=== PATIENT | female | born 1995 | race Caucasian/White ===

== ENCOUNTER 2017-02-06 01:30 | Inpatient (IN) | payer MEDICAID ==
[~2017-02-06] VITALS: Ht 154.9 cm; Wt 96.2 kg
[~2017-02-06 01:30] MED LIST: ADULT LOW DOSE81 MG PO; NOMEDS XX
--- OUTSIDE RECORDS SUMMARY | 2017-02-06 01:34 | External Medical Summary Rpt ---
Author Author , Organization [employer] Address Unknown Phone Unavailable Care Team Providers Care Independent Producer Name Role Phone JHONATAN ISRAEL Unavailable Unavailable OSEI, OSEI Unavailable Unavailable [facility] Unavailable Unavailable HOSPITAL, [facility] Unavailable Unavailable HENRIQUEZ, HENRIQUEZ Unavailable Unavailable HARPEL, HARPEL Unavailable Unavailable [facility] Unavailable Unavailable INC, [facility], Unavailable Unavailable [facility] Un[facility] Unavailable [facility] Unavailable Unavailable [facility] [place] [place] [facility] O'VIANE[facility], O'VIANEY Unavailable Unavailable [facility] Unavailable Unavailable [facility]PITALS, [facility] Purpose Continuity of Care Document - 09-01-2016 through 2016 Problems Code Diagnosis DOS Provider Status [id number] 01-02-2017 [facility] CONDITIONS [facility] UNS 3RD TRIMESTER O4703 FALSE LABOR 01-02-2017 [facility] BEFORE 37 PHYSICIANS CMPLETE GROUP WEEKS GEST 3RD TRI R252 CRAMP AND 01-02-2017 [facility] Z3A34 34 WEEKS 01-02-2017 [facility] INC Z3480 ENC 12-22-2016 [facility] SUPERVISION PHYSICIANS OT NORMAL GROUP PREG UNS TRIMESTER Z36 ENCOUNTER 12-22-2016 [facility] FOR PHYSICIANS GROUP SCREENING OF MOTHER O6003 12-18-2016 [facility] DELIVERY THIRD TRIMESTER Z3A32 32 WEEKS 12-18-2016 [facility] D6851 ACTIVATED 12-17-2016 [facility] PROTEIN C PHYSICIANS RESISTANCE GROUP [id number] OTH DZ 12-17-2016 [facility] BLOOD & BFO PHYSICIANS IMMUN MECH GROUP COMP PREG 3RD TRI Z3A28 28 WEEKS 11-24-2016 [facility] Z3A29 29 WEEKS 11-24-2016 [facility] Z8249 FAMILY HX 11-24-2016 [facility] SERV HRT DZ [facility] CIRC SYSTEM N760 ACUTE 10-31-2016 [facility] VAGINITIS PHYSICIANS GROUP Z131 ENCOUNTER 10-31-2016 [facility] FOR PHYSICIANS SCREENING GROUP FOR DIABETES MELLITUS E860 DEHYDRATION 10-11-2016 [facility] N EMERGENCY PHYS E876 HYPOKALEMIA 10-11-2016 [facility] K529 NONINFECTIV 10-11-2016 [facility] E N EMERGENCY GASTROENTER PHYS ITIS & COLITIS UNS O2690 10-11-2016 [facility] UNS UNS TRIMESTER X31227 DISEASES 10-11-2016 [facility] DIGESTIVE N EMERGENCY SYSTEM COMP PHYS UNS TRI Z3A00 WEEKS OF 10-11-2016 [facility] GESTATION N EMERGENCY OF PHYS NOT SPECIFIED O0972 SUP HIGH 09-18-2016 [facility] RISK PREG PHYSICIANS D/T SOCIAL GROUP PROBLEMS 2ND TRI M34895 ENCOUNTER 09-18-2016 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 PHYSICIANS GENERAL RTN GROUP W/O ABNORMAL FIND Z048 ENCOUNTER 09-18-2016 [facility]BS[facility] OTHER SPEC REASONS [id number] LACERATION 09-01-2016 [facility] W/O FOREIGN N EMERGENCY BODY RT PHYS FOREARM INITIAL [id number] LACERATION 09-01-2016 [facility] W/O FOREIGN N EMERGENCY BODY LT PHYS FOREARM INITIAL [id number] OPEN BITE 09-01-2016 [facility] INITIAL ENCOUNTER [id number] OPEN BITE 09-01-2016 [facility] INITIAL ENCOUNTER [id number] BITTEN BY 09-01-2016 [facility] DOG INITIAL N EMERGENCY ENCOUNTER PHYS Z23 ENCOUNTER 09-01-2016 [facility] Allergies, Adverse Reactions, Alerts Clinical Alert Notifications Alert Member has >/= 3 hosp admit & >/= 1 ED visit in 365 days Medications Na ND Rx Da Fi Fi Am Da Di Ph RX Ph St me C No te ll ll ou ys ag ar # ys at rm s nt no ma ic us Or Da si cy ia de te s n re d PO 00 01 02 10 5 00 SO Ac TA 78 -1 -1 .0 00 PE ti SS 11 6- 0- 00 00 RS ve IU 52 20 20 55 M 61 17 17 36 FA CL 0 [address] 10 UG ME Q TA BL ET WY 68 01 02 12 3 00 WA Ac OM 38 -1 -1 .0 00 L- ti ET 20 4- 0- 00 07 MA ve SOUZA 04 20 20 38 RT ZI 10 17 17 69 NE 1 83 PH AR 25 MA CY MG #4 TA 93 BL ET CL 00 12 01 30 10 00 SO Ac IN 71 -2 -2 .0 00 PE ti DA 35 9- 7- 00 00 RS ve MY 25 20 20 55 CI 60 16 17 23 FA N 1 02 VT HC LY L 30 DR 0 UG MG CA PS UL E Immunization Name Date Route CVX Reacti Commen Provid Is Given on t er Refuse d TD [place] No VACCIN 2015 N E COMMUN PRSRV ITY FREE 7 HOSPIT YRS AL OR OLDER FOR IM USE TD [place] No VACCIN 2016 N E COMMUN PRSRV ITY FREE 7 HOSPIT YRS AL OR OLDER FOR IM USE Procedures Procedure DOS Code Location Performer Comment CULTURE 23708 [facility] BACTERIAL 7 [facility] INC QUANTTATI VE COLONY COUNT URINE EVAL C/V 49198 [facility] AMNIOTIC 7 [facility]OS[facility] FLUID INC INC PROTEIN QUAL EA SPECIMEN DRUG TEST 73027 [facility] PRSMV 7 [facility]OSP QUAL DIR INC INC OPTICAL OBS PER DAY FTL 42372 [facility] FIBRONECT 7 [facility] IN INC INC CERVICOVA G SECRETION S SEMI-ARNALDO 39510 [facility] NONSTRESS 7 PHYSICIAN TEST S GROUP PARTICLE 01266 [facility] AGGLUTINA 7 [facility] TION INC INC SCREEN EACH ANTIBODY CUL 39029 [facility] PRSMPTV 7 PHYSICIAN PTHGNC S GROUP ORGANISM SCRN W[facility] 55093 [facility] DISCHARGE 7 PHYSICIAN DAY S GROUP MANAGEMEN T 30 MIN/< DOPPLER 96638 [facility] VELOCIMET 7 MEDICAL RY IMAGING UMBILICAL ASS ARTERY SBSQ 87607 [facility] 7 PHYSICIAN CARE/DAY S GROUP 15 MINUTES US PREG 87777 [facility] UTERUS 7 MEDICAL REAL TIME IMAGING F/U ASS TRNSABDL PER FETUS 40763 [facility] BIOPHYSIC 7 MEDICAL AL IMAGING PROFILE ASS W/O NON-STRES S TESTING INITIAL 97911 [facility] 7 PHYSICIAN CARE/DAY S GROUP 50 [place] [address] [facility] HOMOCYSTE 7 [facility]ALS [facility]OSPITALS COLLECTIO 64069 [facility] N VENOUS 7 HEALTHCAR HEALTHCAR BLOOD E E VENIPUNCT HOSPITALS HOSPITALS URE COLLECTIO 32793 [facility] N VENOUS 7 MEM H[facility] BLOOD INC INC VENIPUNCT URE GLUCOSE 24326 [facility] POST 7 MEM [facility] GLUCOSE INC INC DOSE SMR PRIM 18871 [facility] SRC WET 7 PHYSICIAN MOUNT S GROUP NFCT AGT BLOOD 83391 [facility] COUNT 7 MEM [facility] COMPLETE INC INC AUTO&AUTO DIFRNTL WBC THERAPEUT 13808 [facility] 7 [facility] TIC/DX INJECTION SUBQ/IM US PREG 38863 [facility] PHYSICIAN AFTER 1ST S GROUP TRIMEST GESTATION IAADIADOO 14807 [facility] 6 PHYSICIAN PHYSICIAN TRICHOMON S GROUP S GROUP VAGINALIS OBSTETRIC 80626 [facility] PANEL 6 [facility] INC INC CULTURE 24922 [facility] CHLAMYDIA 6 PHYSICIAN ANY S GROUP SOURCE DRUG TST G0477 [facility] PRESUMP;C 6 MEM HOS[facility] PBL BEING INC INC READ DC OPT OBV ONLY IADNA 81450 [facility] HERPES 6 PHYSICIAN PHYSICIAN SIMPLX S GROUP S GROUP VIRUS DIRECT PROBE TQ URINE 19408 [facility]ICIAN TEST S GROUP VISUAL COLOR CMPRSN METHS CLOTTING 79038 [facility] FACTOR V 6 MEM H[facility] ACG/PROAC INC INC CELERIN LABILE FACTOR COLLECTIO 42807 [facility] N VENOUS 6 MEM H[facility] MEM [facility]OS[facility] BLOOD INC INC VENIPUNCT URE IADNA 86932 [facility] NEISSERIA 6 PHYSICIAN S GROUP GONORRHOE AE DIRECT PROBE TQ INF AGT G0432 [facility] AB DETECT 6 MEM HOS[facility] MEM [facility] EIA TECH INC INC HIV-1&/HI V-2 [place] [address] [facility] THYROID 6 MEM [facility] MEM [facility] [place]ATI [place] [address] [facility] 6 [facility] FREE 7 YRS OR OLDER FOR IM USE Encounters Encounter Start End Date Code Location Performer Type Date OFFICE 85947 [facility] HENRIQUEZ OUTPATIEN 7 7 PHYSICIAN T VISIT S GROUP 15 MINUTES [facility]OSP[facility] - 7 7 [facility] OUTPATIEN INC T HOSPITAL [facility] - 7 7 [facility] OUTPATI[facility] T OFFICE 82552 [facility] HARPEL OUTPATIEN 7 7 PHYSICIAN T VISIT S GROUP [address] [facility] HARPEL OUTPATIEN 7 7 PHYSICIAN T VISIT S GROUP 15 MINUTES HOSPITAL [facility] HOSPITALS OFFICE 50753 [place] [facility] OUTPATIEN 7 7 MEDICAL T NEW 20 SERV MINUTES FOUNDATIO N OFFICE 63697 [facility] HARPEL OUTPATIEN 7 7 PHYSICIAN T VISIT S GROUP 15 MINUTES HOSPITAL [facility] - 7 7 [facility] OUTPATIEN INC T OFFICE 83340 [facility] HARPEL OUTPATIEN 7 7 PHYSICIAN T VISIT S GROUP 15 MINUTES [facility] 7 7 [facility] T EMERGENCY 82477 [facility] 7 7 JASPAL DEPARTMEN EMERGENCY T VISIT PHYS HIGH/URGE NT SEVERITY OFFICE 00470 [facility]PE[facility] OUTPATIEN 6 6 PHYSICIAN T VISIT S GROUP 15 MINUTES HOSPITAL [facility] - 6 6 [facility] OUTPATIEN INC T INITIAL 28593 [facility] HARPEL PREVENTIV 6 6 PHYSICIAN E S GROUP MEDICINE NEW PT AGE 18-39YRS EMERGENCY [address] T VISIT MODERATE SEVERITY EMERGENCY 50[address] [facility] 6 6 [facility] EMERGENCY T VISIT PHYS HIGH/URGE NT SEVERITY HOSPITAL [address] T
--- OUTSIDE RECORDS SUMMARY | 2017-02-06 01:34 | External Medical Summary Rpt ---
Author Author , Organization [employer] Address Unknown Phone Unavailable Care Team Providers Care Turn Machine Operator Name Role Phone JHONATAN ISRAEL Unavailable Unavailable OSEI, OSEI Unavailable Unavailable [facility] Unavailable Unavailable [facility], [facility] Unavailable Unavailable HENRIQUEZ, HENRIQUEZ Unavailable Unavailable HARPEL, HARPEL Unavailable Unavailable [facility] Unavailable Un[facility] INC, [facility], Unavailable Unavailable [facility] Unavailable [facility] Unavailable Unavailable [facility] O'VIANEY, O'VIANEY Unavailable Unavailable [facility] Unavailable Unavailable HOSPITALS, [facility] Purpose Continuity of Care Document - 09-01-2016 through 2016 Problems Code Diagnosis DOS Provider Status [id number] 01-02-2017 [facility] CONDITIONS [facility] UNS 3RD TRIMESTER O4703 FALSE LABOR 01-02-2017 [facility] BEFORE 37 PHYSICIANS CMPLETE GROUP WEEKS GEST 3RD TRI R252 CRAMP AND 01-02-2017 [facility] Z3A34 34 WEEKS 01-02-2017 [facility] OF INC Z3480 ENC 12-22-2016 [facility] SUPERVISION PHYSICIANS OT NORMAL GROUP PREG UNS TRIMESTER Z36 ENCOUNTER 12-22-2016 [facility] FOR PHYSICIANS GROUP SCREENING OF MOTHER O6003 12-18-2016 [facility] DELIVERY THIRD TRIMESTER Z3A32 32 WEEKS 12-18-2016 [facility] D6851 ACTIVATED 12-17-2016 [facility] PROTEIN C PHYSICIANS RESISTANCE GROUP [id number] OTH DZ 12-17-2016 [facility] BLOOD & BFO PHYSICIANS IMMUN MECH GROUP COMP PREG 3RD TRI Z3A28 28 WEEKS 11-24-2016 [facility] Z3A29 29 WEEKS 11-24-2016 [facility] Z8249 FAMILY HX 11-24-2016 [place] [facility] HRT DZ [facility] CIRC SYSTEM N760 ACUTE 10-31-2016 [facility] VAGINITIS PHYSICIANS GROUP Z131 ENCOUNTER 10-31-2016 [facility] FOR PHYSICIANS SCREENING GROUP FOR DIABETES MELLITUS E860 DEHYDRATION 10-11-2016 [facility] N EMERGENCY PHYS E876 HYPOKALEMIA 10-11-2016 [facility] K529 NONINFECTIV 10-11-2016 [facility] E N EMERGENCY GASTROENTER PHYS ITIS & COLITIS UNS O2690 10-11-2016 [facility] UNS UNS TRIMESTER W12778 DISEASES 10-11-2016 [facility] DIGESTIVE N EMERGENCY SYSTEM COMP PHYS UNS TRI Z3A00 WEEKS OF 10-11-2016 [facility] GESTATION N EMERGENCY OF PHYS NOT SPECIFIED O0972 SUP HIGH 09-18-2016 [facility] RISK PREG PHYSICIANS D/T SOCIAL GROUP PROBLEMS 2ND TRI Y48613 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 09-18-2016 [facility] 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 RTN GROUP W/O ABNORMAL FIND Z048 ENCOUNTER 09-18-2016 [facility] OBS[facility] OTHER SPEC REASONS [id number] LACERATION 09-01-2016 [facility] W/O FOREIGN N EMERGENCY BODY RT PHYS FOREARM INITIAL [id number] LACERATION 09-01-2016 [facility] W/O FOREIGN N EMERGENCY BODY LT PHYS FOREARM INITIAL [id number] OPEN BITE 09-01-2016 [facility] INITIAL ENCOUNTER [id number] OPEN BITE 09-01-2016 [facility] INITIAL ENCOUNTER [id number] BITTEN BY 09-01-2016 [facility] DOG INITIAL N EMERGENCY ENCOUNTER PHYS Z23 ENCOUNTER 09-01-2016 [facility] Allergies, Adverse Reactions, Alerts Clinical Alert [...] 17 17 36 FA CL 0 [address] 10 UG ME Q TA BL ET NM 68 01 02 12 3 00 WA [...] 16 17 23 FA N 1 02 WI HC LY L 30 DR 0 UG [...] Procedure DOS Code Location Performer Comment CULTURE 17803 [facility] BACTERIAL 7 [facility] INC INC QUANTTATI VE COLONY COUNT URINE EVAL C/V 19907 [facility] AMNIOTIC 7 MEM [facility] HOSP FLUID INC INC PROTEIN QUAL EA SPECIMEN DRUG TEST 28240 [facility] PRSMV 7 MEM [facility]OSP QUAL DIR INC INC OPTICAL OBS PER DAY FTL 39436 [facility] FIBRONECT 7 [facility] IN INC INC CERVICOVA G SECRETION S SEMI-ARNALDO 90094 [facility] 7 PHYSICIAN TEST S GROUP PARTICLE 36226 [facility] AGGLUTINA 7 [facility] TION INC INC SCREEN EACH ANTIBODY CUL 25491 [facility] PRSMPTV 7 PHYSICIAN PTHGNC S GROUP ORGANISM SCRN W/[facility] 49405 [facility] DISCHARGE 7 PHYSICIAN DAY S GROUP MANAGEMEN T 30 MIN/< DOPPLER 14122 [facility] VELOCIMET 7 MEDICAL RY IMAGING UMBILICAL ASS ARTERY SBSQ 04783 [facility] 7 PHYSICIAN CARE/DAY S GROUP 15 MINUTES US PREG 21584 [facility] UTERUS 7 MEDICAL REAL TIME IMAGING F/U ASS TRNSABDL PER FETUS 48171 [facility] BIOPHYSIC 7 MEDICAL AL IMAGING PROFILE ASS W/O NON-STRES S TESTING INITIAL 59709 [facility] 7 PHYSICIAN CARE/DAY S GROUP [address] [place] [address] [facility]OC[facility] 7 [facility]ALS [facility]OSPITALS COLLECTIO 39213 [facility] N VENOUS 7 [facility]ALTHCAR [facility]ALTHCAR BLOOD E E VENIPUNCT HOSPITALS HOSPITALS URE COLLECTIO 79687 [facility] N VENOUS 7 MEM H[facility] BLOOD INC INC VENIPUNCT URE GLUCOSE 58818 [facility] POST 7 [facility] GLUCOSE INC INC DOSE SMR PRIM 77891 [facility] SRC WET 7 PHYSICIAN MOUNT S GROUP NFCT AGT BLOOD 62128 [facility] COUNT 7 [facility] COMPLETE INC INC AUTO&AUTO DIFRNTL WBC THERAPEUT 97767 [facility] 7 [facility] TIC/DX INJECTION SUBQ/IM US PREG 11457 [facility] 6 PHYSICIAN AFTER 1ST S GROUP TRIMEST GESTATION IAADIADOO 05545 [facility] 6 PHYSICIAN PHYSICIAN TRICHOMON S GROUP S GROUP VAGINALIS OBSTETRIC 41216 [facility] G[facility] PANEL 6 [facility] INC INC CULTURE 29004 [facility] CHLAMYDIA 6 PHYSICIAN ANY S GROUP SOURCE DRUG TST G0477 [facility] PRESUMP;C 6 MEM H[facility] PBL BEING INC INC READ DC OPT OBV ONLY IADNA 87614 [facility] HERPES 6 PHYSICIAN PHYSICIAN SIMPLX S GROUP S GROUP VIRUS DIRECT PROBE TQ URINE 35736 [facility] 6 PHYSICIAN TEST S GROUP VISUAL COLOR CMPRSN METHS CLOTTING 30581 [facility] FACTOR V 6 MEM H[facility] ACG/PROAC INC INC CELERIN LABILE FACTOR COLLECTIO 29239 [facility] N VENOUS 6 MEM H[facility] BLOOD INC INC VENIPUNCT URE IADNA 45094 [facility] NEISSERIA 6 PHYSICIAN S GROUP GONORRHOE AE DIRECT PROBE TQ INF AGT G0432 [facility] AB DETECT 6 MEM H[facility] EIA TECH INC INC HIV-1&/HI V-2 [place] [address] [facility] THYROID 6 MEM [facility] MEM [facility] [place] [address] [facility] 6 [facility] FREE 7 YRS OR OLDER FOR IM USE Encounters Encounter Start End Date Code Location Performer Type Date OFFICE 47455 [facility] HENRIQUEZ OUTPATIEN 7 7 PHYSICIAN T VISIT S GROUP 15 MINUTES [facility] - 7 7 [facility] INC T [facility] - 7 7 [facility] OUTPATIEN INC T OFFICE 34232 [facility] HARPEL OUTPATIEN 7 7 PHYSICIAN T VISIT S GROUP 15 MINUTES OFFICE 54757 [facility] OUTPATIEN 7 7 PHYSICIAN T VISIT S GROUP 15 MINUTES [facility] OFF[facility] 44004 [facility] 7 7 MEDICAL T NEW 20 SERV MINUTES FOUNDATIO N OFFICE 20288 [facility] OUTPATIEN 7 7 PHYSICIAN T VISIT S GROUP 15 MINUTES HOSPITAL [facility] - 7 7 [facility] OUTPATIEN INC T OFFICE 51561 [facility] OUTPATIEN 7 7 PHYSICIAN T VISIT S GROUP 15 MINUTES [facility] 7 [facility] EMER[facility]ENC[facility] 35402 [facility] 7 7 [facility] DEPARTMEN EMERGENCY T VISIT PHYS HIGH/URGE NT SEVERITY OFFICE 19166 [facility] OUTPATIEN 6 6 PHYSICIAN T VISIT S GROUP 15 MINUTES HOSPITAL [facility] - 6 6 [facility] OUTPATIEN INC T INITIAL 84211 [facility] PREVENTIV 6 6 PHYSICIAN E S GROUP MEDICINE NEW PT AGE 18-39YRS EMERGENCY [address] T VISIT MODERATE SEVERITY EMERGENCY 18444 [facility] 6 6 [facility] EMERGENCY T VISIT PHYS HIGH/URGE NT SEVERITY HOSPITAL [address] T
--- OUTSIDE RECORDS SUMMARY | 2017-02-06 01:35 | External Medical Summary Rpt ---
Author Author , Organization [employer] Address Unknown Phone Unavailable Care Team Providers Care Fractionation Supervisor Name Role Phone JHONATAN ISRAEL Unavailable Unavailable OSEI, OSEI Unavailable Unavailable [facility] Unavailable Unavailable [facility]PITAL, [facility] CHESTNUT, CHESTNUT Unavailable Unavailable HENRIQUEZ, HENRIQUEZ Unavailable Unavailable HARPEL, HARPEL Unavailable Unavailable [facility] Un[facility] Un[facility], [facility], Unavailable Unavailable [facility] Unavailable [facility] Un[facility], [facility] O'VIAENY, O'VIANEY Unavailable Unavailable [facility] Unavailable Unavailable [facility]PIT[facility], [facility] Purpose Continuity of Care Document - 09-01-2016 through 2016 Problems Code Diagnosis DOS Provider Status [id number] 01-02-2017 [facility] CONDITIONS [facility] UNS 3RD TRIMESTER O4703 FALSE LABOR 01-02-2017 [facility] BEFORE 37 PHYSICIANS CMPLETE GROUP WEEKS GEST 3RD TRI R252 CRAMP AND 01-02-2017 [facility] Z3A34 34 WEEKS 01-02-2017 [facility] INC Z3480 ENC 12-22-2016 [facility] SUPERVISION PHYSICIANS OT NORMAL GROUP PREG UNS TRIMESTER Z36 ENCOUNTER 12-22-2016 [facility] GROUP SCREENING OF MOTHER O6003 12-18-2016 [facility] DELIVERY THIRD TRIMESTER Z3A32 32 WEEKS 12-18-2016 [facility] D6851 ACTIVATED 12-17-2016 [facility] PROTEIN C PHYSICIANS RESISTANCE GROUP H36019 OTH DZ 12-17-2016 [facility] BLOOD & BFO PHYSICIANS IMMUN MECH GROUP COMP PREG 3RD TRI Z3A28 28 WEEKS 11-24-2016 [facility] Z3A29 29 WEEKS 11-24-2016 [facility] Z8249 FAMILY HX 11-24-2016 [facility] HRT DZ [facility] CIRC SYSTEM N760 ACUTE 10-31-2016 [facility] VAGINITIS PHYSICIANS GROUP Z131 ENCOUNTER 10-31-2016 [facility] FOR PH[facility]IANS SCREENING GROUP FOR DIABETES MELLITUS E860 DEHYDRATION 10-11-2016 [facility] N EMERGENCY PHYS E876 HYPOKALEMIA 10-11-2016 [facility] K529 NONINFECTIV 10-11-2016 [facility] E N EMERGENCY GASTROENTER PHYS ITIS & COLITIS UNS O2690 10-11-2016 [facility] UNS UNS TRIMESTER I03031 DISEASES 10-11-2016 [facility] DIGESTIVE N EMERGENCY SYSTEM COMP PHYS UNS TRI Z3A00 WEEKS OF 10-11-2016 [facility] GESTATION N EMERGENCY OF PHYS NOT SPECIFIED O0972 SUP HIGH 09-18-2016 [facility] RISK PREG PHYSICIANS D/T SOCIAL GROUP PROBLEMS 2ND TRI T60635 ENCOUNTER 09-18-2016 [facility] 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 RTN GROUP W/O ABNORMAL FIND Z048 ENCOUNTER 09-18-2016 [facility] OBSERVATION INC OTHER SPEC REASONS [id number] LACERATION 09-01-2016 [facility] W/O FOREIGN N EMERGENCY BODY RT PHYS FOREARM INITIAL [id number] LACERATION 09-01-2016 [facility] W/O FOREIGN N EMERGENCY BODY LT PHYS FOREARM INITIAL [id number] OPEN BITE 09-01-2016 [facility] INITIAL ENCOUNTER [id number] OPEN BITE 09-01-2016 [facility] INITIAL ENCOUNTER [id number] BITTEN BY 09-01-2016 [facility] DOG INITIAL N EMERGENCY ENCOUNTER PHYS Z23 ENCOUNTER 09-01-2016 [facility] Medic[facility] Na ND Rx Da Fi Fi [...] 17 17 36 FA CL 0 [address] 10 UG ME Q TA BL ET WA 68 01 02 12 3 00 WA [...] 16 17 23 FA N 1 02 NH HC LY L 30 DR 0 UG MG CA PS UL E Immunization Name Date Route CVX Reacti Commen Provid Is Given on t er Refuse d TD [place] No VACCIN 2015 N E COMMUN PRSRV ITY FREE 7 HOSPIT YRS AL OR OLDER FOR IM USE TD [place] No VACCIN 2015 N E COMMUN PRSRV ITY FREE 7 HOSPIT YRS AL OR OLDER FOR IM USE Procedures Procedure DOS Code Location Performer Comment CULTURE 63261 [facility] BACTERIAL [facility] INC INC QUANTTATI VE COLONY COUNT URINE 42926 [facility] NONSTRESS 7 [facility] TEST INC INC EVAL C/V 93564 [facility] AMNIOTIC 7 [facility] FLUID INC INC PROTEIN QUAL EA SPECIMEN DRUG TEST 13664 [facility] PRSMV 7 [facility] QUAL DIR INC INC OPTICAL OBS PER DAY FTL 76278 [facility] FIBRONECT 7 [facility] IN INC INC CERVICOVA G SECRETION S SEMI-ARNALDO PARTICLE 76362 [facility] AGGLUTINA 7 [facility] TION INC INC SCREEN EACH ANTIBODY CUL 91127 [facility] PRSMPTV 7 PHYSICIAN PTHGNC S GROUP ORGANISM SCRN W[facility] 59768 [facility] DISCHARGE 7 PHYSICIAN DAY S GROUP MANAGEMEN T 30 MIN/< SBSQ 71372 [facility] 7 PHYSICIAN CARE/DAY S GROUP 15 MINUTES DOPPLER 80377 [facility] VELOCIMET 7 MEDICAL RY IMAGING UMBILICAL ASS ARTERY US PREG 92708 [facility] UTERUS 7 MEDICAL REAL TIME IMAGING F/U ASS TRNSABDL PER FETUS 62465 [facility] BIOP[facility]IC 7 MEDICAL AL IMAGING PROFILE ASS W/O NON-STRES S TESTING INITIAL [address] [place] [address] PHYSICIAN CARE/DAY S GROUP 50 MINUTES COLLECTIO 21853 [facility] N VENOUS 7 [facility] BLOOD [place] [address] [facility] HOMOCYSTE 7 [facility] INE E [facility] GLUCOSE 05925 [facility] POST 7 MEM [facility] GLUCOSE INC INC DOSE SMR PRIM 40468 [facility] SRC WET 7 PHYSICIAN MOUNT S GROUP NFCT AGT COLLECTIO 27902 [facility] N VENOUS 7 MEM HOSP [facility]OS[facility] BLOOD INC INC VENIPUNCT URE BLOOD 94679 [facility] COUNT 7 [facility] COMPLETE INC INC AUTO&AUTO DIFRNTL WBC THERAPEUT 60867 YO RAM IC 7 [facility] TIC/DX INJECTION SUBQ/IM US PREG 54452 [facility] HARPEL UTERUS 6 PHYSICIAN AFTER 1ST [place] [address] [facility] THYROID 6 [facility] STIMULATI INC INC NG HORMONE TSH IADNA 93916 [facility] NEISSERIA 6 PHYSICIAN S GROUP GONORRHOE AE DIRECT PROBE TQ INF AGT G0432 [facility] AB DETECT 6 [facility] EIA TECH INC INC HIV-1&/HI V-2 SCR COLLECTIO 55640 [facility] N VENOUS 6 [facility] BLOOD INC INC VENIPUNCT URE IAADIADOO 17995 [facility] 6 PHYSICIAN PHYSICIAN TRICHOMON S GROUP S GROUP VAGINALIS OBSTETRIC 25808 [facility] PANEL 6 [facility] INC INC CULTURE 25831 [facility] CHLAMYDIA 6 PHYSICIAN ANY S GROUP SOURCE DRUG TST G0477 [facility] PRESUMP;C 6 [facility] H[facility] PBL BEING INC INC READ DC OPT OBV ONLY IADNA 26981 [facility] HERPES 6 PHYSICIAN PHYSICIAN SIMPLX S GROUP S GROUP VIRUS DIRECT PROBE TQ URINE 88217 [facility] 6 PHYSICIAN TEST S GROUP VISUAL COLOR CMPRSN METHS CLOTTING 43548 [facility] FACTOR V 6 MEM HOS[facility] MEM HOSP ACG/PROAC [place] [address] [facility] BOKULDIPON VACCINE 6 [facility] FREE 7 YRS OR OLDER FOR IM USE Encounters Encounter Start End Date Code Location Performer Type Date HOSPITAL [facility] - 7 7 [facility] OUTPATIEN INC T OFFICE 27678 [facility] HENRIQUEZ OUTPATIEN 7 7 PHYSICIAN T VISIT S GROUP 15 MINUTES OFFICE 19076 [facility] OUTPATIEN 7 7 PHYSICIAN T VISIT S GROUP 15 MINUTES HOSPITAL [facility] - 7 7 [facility] OUTPATIEN INC T OFFICE 41362 [facility] OUTPATIEN 7 7 PHYSICIAN T VISIT S GROUP 15 MINUTES OFFICE 86602 [facility] OUTPATIEN 7 7 MEDICAL T NEW 20 SERV MINUTES [facility] - 7 7 HEALTHCAR OUTPATIEN E T HOSPITALS OFFICE 99994 [facility] OUTPATIEN 7 7 PHYSICIAN T VISIT S GROUP 15 MINUTES HOSPITAL [facility] - 7 7 [facility] OUTPATIEN INC T OFFICE 46154 [facility] OUTPATIEN 7 7 PHYSICIAN T VISIT S GROUP 15 MINUTES HOSPITAL YO - 7 7 [facility] T EMERGENCY [address] [facility] 7 7 [facility] EMERGENCY T VISIT PHYS HIGH/URGE NT SEVERITY OFFICE 64880 [facility] OUTPATIEN 6 6 PHYSICIAN T VISIT S GROUP 15 MINUTES HOSPITAL [facility] - 6 6 [facility] OUTPATIEN INC T INITIAL 24680 [facility] PREVENTIV 6 6 PHYSICIAN E S GROUP MEDICINE NEW PT AGE 18-39YRS EMERGENCY 00647 [place] 6 6 [facility] T VISIT MODERATE SEVERITY EMERGENCY 75332 [facility] 6 6 [facility] EMERGENCY T VISIT PHYS HIGH/URGE NT [facility] [address] T
--- OUTSIDE RECORDS SUMMARY | 2017-02-06 01:35 | External Medical Summary Rpt ---
Author Author ALDEN Florez, [employer] Organization [employer] Address Unknown Phone Unavailable
--- OUTSIDE RECORDS SUMMARY | 2017-02-06 01:35 | External Medical Summary Rpt ---
Author Author , Organization [employer] Address Unknown Phone Unavailable Care Team Providers Care Sap Business Analyst Name Role Phone JHONATAN ISRAEL Unavailable Unavailable OSEI, OSEI Unavailable Unavailable [facility] Unavailable Unavailable [facility], [facility] CHESTNUT, CHESTNUT Unavailable Unavailable HENRIQUEZ, HENRIQUEZ Unavailable Unavailable HARPEL, HARPEL Unavailable Unavailable [facility] Unavailable Un[facility] INC, [facility], Unavailable Unavailable [facility] Unavailable Unavailable [facility] Unavailable Unavailable [facility], [facility] O'VIANEY, O'VIANEY Unavailable Unavailable [facility] Unavailable [facility]available [facility]OSPITALS, [facility] Purpose Continuity of Care Document - 09-01-2016 through 2016 Problems Code Diagnosis DOS Provider Status [id number] 01-02-2017 [facility] CONDITIONS [facility] UNS 3RD TRIMESTER O4703 FALSE LABOR 01-02-2017 [facility] BEFORE 37 PHYSICIANS CMPLETE GROUP WEEKS GEST 3RD TRI R252 CRAMP AND 01-02-2017 [facility] Z3A34 34 WEEKS 01-02-2017 [facility] INC Z3480 ENC 12-22-2016 [facility] SUPERVISION PHYSICIANS OT NORMAL GROUP PREG UNS TRIMESTER Z36 ENCOUNTER 12-22-2016 [facility] GROUP SCREENING OF MOTHER O6003 12-18-2016 [facility] DELIVERY THIRD TRIMESTER Z3A32 32 WEEKS 12-18-2016 [facility] D6851 ACTIVATED 12-17-2016 [facility] PROTEIN C PHYSICIANS RESISTANCE GROUP D59374 OTH DZ 12-17-2016 [facility] BLOOD & BFO PHYSICIANS IMMUN MECH GROUP COMP PREG 3RD TRI Z3A28 28 WEEKS 11-24-2016 [facility] Z3A29 29 WEEKS 11-24-2016 [facility] Z8249 FAMILY HX 11-24-2016 [facility] HRT DZ [facility] CIRC SYSTEM N760 ACUTE 10-31-2016 [facility] VAGINITIS PHYSICIANS GROUP Z131 ENCOUNTER 10-31-2016 [facility] FOR PHYS[facility]IANS SCREENING GROUP FOR DIABETES MELLITUS E860 DEHYDRATION 10-11-2016 [facility] N EMERGENCY PHYS E876 HYPOKALEMIA 10-11-2016 [facility] K529 NONINFECTIV 10-11-2016 [facility] E N EMERGENCY GASTROENTER PHYS ITIS & COLITIS UNS O2690 10-11-2016 [facility] UNS UNS TRIMESTER Q59681 DISEASES 10-11-2016 [facility] DIGESTIVE N EMERGENCY SYSTEM COMP PHYS UNS TRI Z3A00 WEEKS OF 10-11-2016 [facility] GESTATION N EMERGENCY OF PHYS NOT SPECIFIED O0972 SUP HIGH 09-18-2016 [facility] RISK PREG PHYSICIANS D/T SOCIAL GROUP PROBLEMS 2ND TRI O70634 ENCOUNTER 09-18-2016 [facility] TOBACCO STEMMER EXAM PHYSICIANS GENERAL RTN GROUP W/O ABNORMAL FIND Z048 ENCOUNTER 09-18-2016 [facility] OBS[facility]ATION INC OTHER SPEC REASONS [id number] LACERATION 09-01-2016 [facility] W/O FOREIGN N EMERGENCY BODY RT PHYS FOREARM INITIAL V11015E LACERATION 09-01-2016 [facility] W/O FOREIGN N EMERGENCY BODY LT PHYS FOREARM INITIAL D26645A OPEN BITE 09-01-2016 [facility] INITIAL ENCOUNTER [id number] OPEN BITE 09-01-2016 [facility] INITIAL ENCOUNTER [id number] BITTEN BY 09-01-2016 [facility] DOG INITIAL N EMERGENCY ENCOUNTER PHYS Z23 ENCOUNTER 09-01-2016 [facility] N Medications Na ND Rx Da Fi [...] 17 17 36 FA CL 0 [address] [place] [address] 10 UG ME Q TA BL ET [place] 68 01 02 12 3 00 [place] [...] 16 17 23 FA N 1 02 [place] HC LY L 30 DR 0 UG [...] Procedure DOS Code Location Performer Comment CULTURE 72312 [facility] BACTERIAL 7 [facility] INC INC QUANTTATI VE COLONY COUNT URINE 76037 [facility] NONSTRESS 7 [facility] TEST INC INC EVAL C/V 11397 [facility] AMNIOTIC 7 MEM [facility] FLUID INC INC PROTEIN QUAL EA SPECIMEN DRUG TEST 93981 [facility] PRSMV 7 MEM [facility]OSP QUAL DIR INC INC OPTICAL OBS PER DAY FTL 92316 [facility] G[facility] FIBRONECT 7 MEM HOS[facility] IN INC INC CERVICOVA G SECRETION S SEMI-ARNALDO PARTICLE 11078 [facility] AGGLUTINA 7 MEM [facility] HOSP TION INC INC SCREEN EACH ANTIBODY CUL 54411 [facility] PRSMPTV 7 PHYSICIAN PTHGNC S GROUP ORGANISM SCRN W[facility] [address] [facility] DISCHARGE 7 PHYSICIAN DAY S GROUP MANAGEMEN T 30 MIN/< SBSQ 08812 [facility] 7 PHYSICIAN CARE/DAY S GROUP 15 MINUTES DOPPLER 31430 [facility] VELOC[facility] 7 MEDICAL RY IMAGING UMBILICAL ASS ARTERY US PREG 41422 [facility] UTERUS 7 MEDICAL REAL TIME IMAGING F/U ASS TRNSABDL PER FETUS 80435 [facility] 7 MEDICAL AL IMAGING PROFILE ASS W/O NON-STRES S TESTING INITIAL [address] [place] [address] PHYSICIAN CARE/DAY S GROUP 50 MINUTES COLLECTIO 95027 [facility] N VENOUS 7 [facility] BLOOD [facility] [address] [facility] HOMOCYSTE 7 [facility] INE E [facility] GLUCOSE 08953 [facility] POST 7 [facility] H[facility] GLUCOSE INC INC DOSE SMR PRIM 62722 [facility] SRC WET 7 PHYSICIAN [place] GROUP NFCT AGT COLLECTIO 51031 [facility] N VENOUS 7 [facility] HOS[facility] BLOOD INC INC VENIPUNCT URE BLOOD 11116 [facility] COUNT 7 [facility] COMPLETE INC INC AUTO&AUTO DIFRNTL WBC THERAPEUT 14740 YO RAM IC 7 [facility] TIC/DX INJECTION SUBQ/IM US PREG 72929 [facility] UTERUS 6 PHYSICIAN AFTER 1ST [place] [address] [facility] THYROID 6 [facility] STIMULATI INC INC NG HORMONE TSH IADNA 77719 [facility] NEISSERIA 6 PHYSICIAN S GROUP GONORRHOE AE DIRECT PROBE TQ INF AGT G0432 [facility] AB DETECT 6 [facility] EIA TECH INC INC HIV-1&/HI V-2 SCR COLLECTIO 29848 [facility] N VENOUS 6 [facility] BLOOD INC INC VENIPUNCT URE IAADIADOO 71383 [facility] 6 PHYSICIAN PHYSICIAN TRICHOMON S GROUP S GROUP VAGINALIS OBSTETRIC 82490 [facility] PANEL 6 [facility] INC INC CULTURE 98176 [facility] CHLAMYDIA 6 PHYSICIAN ANY S GROUP SOURCE DRUG TST G0477 [facility] PRESUMP;C 6 [facility] PBL BEING INC INC READ DC OPT OBV ONLY IADNA 35430 [facility] HERPES 6 PHYSICIAN PHYSICIAN SIMPLX S GROUP S GROUP VIRUS DIRECT PROBE TQ URINE 19173 [facility] 6 PHYSICIAN TEST S GROUP VISUAL COLOR CMPRSN METHS CLOTTING 88885 [facility] FACTOR V 6 MEM H[facility]OS[facility] ACG/PROAC [place] [address] [facility] BOKULDIPON VACCINE 6 [facility] FREE 7 YRS OR OLDER FOR IM USE Encounters Encounter Start End Date Code Location Performer Type Date HOSPITAL [facility] - 7 7 [facility] OUTPATIEN INC T OFFICE 33125 [facility] HENRIQUEZ OUTPATIEN 7 7 PHYSICIAN T VISIT S GROUP 15 MINUTES OFFICE 69491 [facility] OUTPATIEN 7 7 PHYSICIAN T VISIT S GROUP 15 MINUTES HOSPITAL [facility] - 7 7 [facility] OUTPATIEN INC T OFFICE 80717 [facility] OUTPATIEN 7 7 PHYSICIAN T VISIT S GROUP 15 MINUTES OFFICE 30908 [facility] OUT[facility] 7 7 MEDICAL T NEW 20 SERV MINUTES [facility] - 7 7 [facility]ALTH[facility] OUTPATIEN E T HOSPITALS OFFICE 87736 [facility] OUTPATIEN 7 7 PHYSICIAN T VISIT S GROUP 15 MINUTES HOSPITAL [facility] - 7 7 [facility] OUTPATIEN INC T OFFICE 79884 [facility] OUTPATIEN 7 7 PHYSICIAN T VISIT S GROUP 15 MINUTES HOSPITAL YO - 7 7 [facility] T EMERGENCY 51347 [facility] 7 7 [facility] EMERGENCY T VISIT PHYS HIGH/URGE NT SEVERITY OFFICE 63740 [facility] OUTPATIEN 6 6 PHYSICIAN T VISIT S GROUP 15 MINUTES HOSPITAL [facility] - 6 6 [facility] OUTPATIEN INC T INITIAL 59462 [facility] PREVENTIV 6 6 PHYSICIAN E S GROUP MEDICINE NEW PT AGE 18-39YRS EMERGENCY 59546 [facility] 6 6 [facility] T VISIT MODERATE SEVERITY EMERGENCY 07445 [facility] 6 6 [facility] EMERGENCY T VISIT PHYS HIGH/URGE NT [facility] [address] T
--- OUTSIDE RECORDS SUMMARY | 2017-02-06 01:35 | External Medical Summary Rpt ---
Demographics Preferred Language Irish Marital Status Unknown Jew Affiliation Unknown Race Unknown Ethnic Group Unknown Author Author , Organization [employer] Address Unknown Phone Unavailable Purpose Continuity of Care Document - through 2016 Immunization No patient found.
--- OUTSIDE RECORDS SUMMARY | 2017-02-06 01:35 | External Medical Summary Rpt ---
Demographics Preferred Language Austrian Marital Status Unknown Religion Affiliation Unknown Race Unknown Ethnic Group Unknown Author Author , Organization [employer] Address Unknown Phone Unavailable Purpose Continuity of Care Document - through 2016 Immunization No patient found.
[2017-02-06 05:55] VITALS: BP 134/82
--- NOTE | 2017-02-06 06:28 | ACUTE CARE PROGRESS NOTE (QUA) ---
Progress Notes Subjective Date 02/06/17 Time 0626 Assessment/Plan This inpt stay is expected to cross 2 MNs from start of care Yes (OB delivery) Comments: This 21-year-old 3, para 1, AB 1 white female is admitted at 39 weeks of gestation with irregular contractions. She has exhibited signs and symptoms of mild preeclampsia, but her blood pressure this morning is 135/82. She does have 2+ edema, and her deep tendon reflexes are borderline high. Her cervix is 2 cm, 80 percent, with a presenting vertex at -2 station. Bag water intact. The plan is to augment with intravenous Pitocin. -induced hypertension labs have been drawn, and magnesium sulfate may be started, depending on the results. Vaginal delivery is anticipated. at 4478
[2017-02-06 06:33] LABS: HEMOGLOBIN 11.2 g/dL (12.2-16.2); LYMPH # 2.8 K/mm3 (0.7-4.5); LYMPH % 28.6 % (10-50.0)
--- NOTE | 2017-02-06 07:00 | ACUTE CARE PROGRESS NOTE (QUA) ---
Progress Notes Subjective Date 02/06/17 Time 0659 Note Blood pressure remains stable. D dimers are 1490. Fibrinogen pending. Cervix is unchanged. Contractions are picking up. Patient may have an epidural as desired. Assessment/Plan This inpt stay is expected to cross 2 MNs from start of care Yes (OB delivery) at 0700
[2017-02-06 07:31] LABS: ABO BLOOD TYPE B; RH BLOOD TYPE POSITIVE
--- NOTE | 2017-02-06 08:26 | ACUTE CARE PROGRESS NOTE (QUA) ---
Progress Notes Subjective Date 02/06/17 Time 0825 Note The patient's blood pressure remained stable. Cervix is now 3 cm, 80 percent, with a presenting vertex at -2 station. She is about to receive an epidural. Assessment/Plan This inpt stay is expected to cross 2 MNs from start of care Yes (OB delivery) at 0814
--- NOTE | 2017-02-06 09:15 | ACUTE CARE PROGRESS NOTE (QUA) ---
Progress Notes Subjective Date 02/06/17 Time 0913 Note Epidural is now in place. Cervix 3 cm, 80 percent, -2. Amniotomy reveals clear fluid and an internal toco has been placed. Blood pressure 135/86. Assessment/Plan This inpt stay is expected to cross 2 MNs from start of care Yes (OB delivery) at 0914
--- NOTE | 2017-02-06 11:04 | ACUTE CARE PROGRESS NOTE (QUA) ---
Progress Notes Subjective Date 02/06/17 Time 1103 Note Cervix is now 4 cm, but the head is not descended further. An internal electrode has been placed. The patient is comfortable, and her vital signs are stable. Assessment/Plan This inpt stay is expected to cross 2 MNs from start of care Yes (OB delivery) at 1104
--- NOTE | 2017-02-06 13:01 | ACUTE CARE PROGRESS NOTE (QUA) ---
Progress Notes Subjective Date 02/06/17 Time 1300 Note Cervix now completely effaced, 6 cm, 0 station. Patient doing well. Assessment/Plan This inpt stay is expected to cross 2 MNs from start of care Yes (OB delivery) at 1301
--- NOTE | 2017-02-06 15:45 | Delivery Note ---
Delivery note Delivery date: 02/06/17 Delivery time: 1351 Anesthesia: Epidural Was labor medically induced? Yes (mild -induced hyperte) Method for inducing labor: Oxytocin Gestational age in weeks: 39 weeks Delivery prior to 39 weeks? No Sex: female score at one minute: 8 at 5 minutes: 9 Type of suction: bulb AF: Clear Delivery procedure: Normal Delivery Delivery of placenta: spontaneous Clinical note This 21-year-old 3, now para 2, AB 1 white female was admitted at 39 weeks of gestation with signs and symptoms of mild preeclampsia. Her blood pressure remained normal, and she was not treated with intravenous magnesium sulfate. She was augmented with intravenous Pitocin. On admission, her cervix was 3 cm dilated. She went steadily to completion at 1340 and delivered spontaneously, without an episiotomy, at 1351. There was no meconium, no was there a nuchal cord. The baby's naso-and oropharynx were bulb suctioned, and the baby cried spontaneously on the perineum, as was delivered. The cord was clamped and cut, 3 vessels were noted to be within the cord, and cord blood was obtained. The cord pH was 7.36. The baby was handed into the arms of the attending RN, who assigned Apgars of 8 at 1 minute and 9 at 5 minutes to this 6 lbs. 13 oz., 19 inch female , born at 1351. The placenta delivered spontaneously, intact at 1355, making the total time in labor 7 hours 55 minutes. The uterus was inspected and was felt to be clean, and was involuting well, with IV Pitocin running. There were no lacerations. The rectovaginal septum was intact at the close of the procedure. The sponge and needle counts correct. The estimated blood loss was 350 mL. The patient tolerated the procedure well, and was recovered in excellent condition. Her blood type is B positive. Her rubella titer is immune. She plans to breast-feed. at 7284
[2017-02-06 20:02] VITALS: BP 134/71
--- NOTE | 2017-02-07 06:53 | ACUTE CARE PROGRESS NOTE (QUA) ---
Progress Notes Subjective Date 02/07/17 Time 0652 Note This is day number 1. The patient is afebrile. Vital signs stable. Abdomen soft. Uterine fundus involuting well. DTRs are normal. Her blood pressure is 130/82. Lochia is normal. Impression: Stable. Assessment/Plan This inpt stay is expected to cross 2 MNs from start of care Yes (OB delivery) at 0602
[2017-02-07 07:27] LABS: HEMOGLOBIN 10.6 g/dL (12.2-16.2)
[2017-02-07 08:20] VITALS: BP 138/87
[2017-02-08 08:30] VITALS: BP 140/81
--- NOTE | 2017-02-08 09:06 | ACUTE CARE PROGRESS NOTE (QUA) ---
Progress Notes Subjective Date 02/08/17 Time 0905 Note This is day number 2. The patient is afebrile. Vital signs stable. Abdomen soft. Lochia normal. Uterine fundus is involuting well. Hemoglobin 10.6 g, but she is clinically stable. She will be discharged today. Assessment/Plan This inpt stay is expected to cross 2 MNs from start of care Yes (OB delivery) at 0906
--- NOTE | 2017-02-08 09:12 | DISCHARGE SUMMARY STANDARD ---
Discharge Summary Date of admission: 02/06/17 Date of discharge: 02/08/17 Patient condition: Stable Discharge diagnosis (es): 1. Term intrauterine , delivered. 2. Mild preeclampsia. 3. Factor V Leiden. 4. Anemia. Hospital course: This 21-year-old 3, now para 2, AB 1 white female was admitted at 39 weeks of gestation with signs and symptoms of mild preeclampsia. She was having irregular contractions at the time of admission, and her cervix was 2 cm dilated. She was augmented with intravenous Pitocin. Her blood pressure remained relatively low, and she was not treated with magnesium sulfate. She was known to have factor V Leiden, and had been on aspirin throughout the . This was continued throughout her hospitalization. She went steadily to completion and delivered spontaneously, without an episiotomy, at 1355 on 02/06/17. The baby was an 8/9, 6 lbs. 13 oz., 19 inch female , who is breast-feeding and has done well. , the patient has done well. Her blood pressure has reverted to normal. Her lochia is normal. Her uterine fundus has involuted well. Her abdomen is soft. Her hemoglobin is 10.6 g, but she is clinically stable. She is not a smoker. She is discharged home on the second day on iron and vitamins, and on Tylenol and Motrin, as needed for pain. She is to continue on her low-dose aspirin daily. She is given appropriate instructions as to diet, exercise, and perineal care, and she is to return to the office in 3 weeks for follow-up. Her blood type is B positive. Her rubella titer is immune. at 0911
== END 2017-02-08 11:30 | disposition home or self-care (01) | DRG 774 ==
LOC: OB 01:30 → 2ND 01:30 → OB 05:29
PROVIDERS: Obstetrics & Gynecology
PROC: 10E0XZZ Delivery of Products of Conception, External Approach (ICD-10-PCS; principal; 2017-02-06)
DX: O13.3 Gestational [pregnancy-induced] hypertension without significant proteinuria, third trimester (principal); O14.03 Mild to moderate pre-eclampsia, third trimester; D68.51 Activated protein C resistance; O99.113 Other diseases of the blood and blood-forming organs and certain disorders involving the immune mechanism complicating pregnancy, third trimester; Z3A.39 39 weeks gestation of pregnancy; Z37.0 Single live birth